=== PATIENT | female | born 1980 | race African-American/Black ===

== ENCOUNTER 2018-10-11 17:16 | Emergency (ER) | payer SELFPAY | END 2018-10-11 19:19 | disposition left against medical advice (07) | LOC: ERS 17:16 | DX: Z53.21 Procedure and treatment not carried out due to patient leaving prior to being seen by health care provider (principal) ==

== ENCOUNTER 2019-06-22 09:03 | Emergency (ER) | payer BC, SELFPAY ==
[2019-06-22] MEDS ORDERED: Metoclopramide HCl 10 MG/2 ML VIAL ONE (09:48)
[2019-06-22] MEDS ORDERED: Ketorolac Tromethamine 30 MG/ML VIAL ONE (09:48)
[2019-06-22] MEDS ORDERED: Dexamethasone 10 MG/ML VIAL ONE (09:48)
== END 2019-06-22 11:25 | disposition home or self-care (01) ==
LOC: ERS 09:03
DX: G43.909 Migraine, unspecified, not intractable, without status migrainosus (principal); F32.9 Major depressive disorder, single episode, unspecified
CPT/HCPCS: 96361; 96374; 96375; J1100; J1885; J2765

== ENCOUNTER 2019-10-30 05:44 | Emergency (ER) | payer BC ==
[2019-10-30] MEDS ORDERED: Ketorolac Tromethamine 60 MG/2 ML VIAL ONE ×2 (06:05→06:07)
== END 2019-10-30 06:35 | disposition home or self-care (01) ==
LOC: ERS 05:44
DX: J02.9 Acute pharyngitis, unspecified (principal); F32.9 Major depressive disorder, single episode, unspecified; G43.909 Migraine, unspecified, not intractable, without status migrainosus; Z79.899 Other long term (current) drug therapy
CPT/HCPCS: 87081; 87430; 96372; 99283; J1885

== ENCOUNTER 2020-06-21 07:18 | Emergency (ER) | payer BC, SELFPAY ==
[2020-06-21] MEDS ORDERED: Ibuprofen 800 MG TAB ONE (08:06)
[2020-06-21] MEDS ORDERED: Acetaminophen 500 MG TAB ONE (09:01)
--- NOTE | 2020-06-21 10:48 | RAD ---
LEFT HIP RADIOGRAPHS TWO VIEWS: 06/21/20 PROVIDED CLINICAL HISTORY: Left hip pain. FINDINGS: Evaluation is limited by patient body habitus. There is no evidence for fracture or other acute osseous abnormality. If there is persistent clinical concern, conservative management and follow-up imaging are advised. IMPRESSION: As above. POS: KATIE
== END 2020-06-21 09:03 | disposition home or self-care (01) ==
LOC: ERS 07:18
DX: G62.9 Polyneuropathy, unspecified (principal); R51.9 Headache, unspecified; M25.552 Pain in left hip; F32.9 Major depressive disorder, single episode, unspecified

== ENCOUNTER 2020-06-22 19:17 | Emergency (ER) | payer SELFPAY | END 2020-06-22 21:48 | disposition home or self-care (01) | LOC: ERS 19:17 | DX: R53.83 Other fatigue (principal); T48.1X5A Adverse effect of skeletal muscle relaxants [neuromuscular blocking agents], initial encounter; G43.909 Migraine, unspecified, not intractable, without status migrainosus | CPT/HCPCS: 93005 ==

== ENCOUNTER 2020-06-25 09:10 | Emergency (ER) | payer SELFPAY ==
[2020-06-25 10:44] LABS: #Eosinphils 0.1 thou/uL (0.0-0.7); #Monocytes 0.4 thou/uL (0.11-0.59); #Neutrophils 2.2 thou/uL (1.40-6.50); %Basophils 0.3 % (0.0-1.0); %Lymphocytes 42.8 % (21.0-51.0); %Monocytes 8.6 % (0.0-10.0); %Neutrophils 46.3 % (42.0-75.0); Hemoglobin 14.1 g/dL (12.0-16.0); Mean Corpuscular HGB CONC 31.3 g/dL (32.0-36.0); Mean Corpuscular Hemoglobin 27.5 pg (27.0-31.0); Mean Platelet Volume 8.7 fL (7.4-10.4); Platelet Count 179 thou/uL (130-400); RBC Distribution Width 12.7 % (11.5-14.5); Red Blood Cell (RBC) Count 5.12 mill/uL (4.20-5.40); White Blood Cell (WBC) Count 4.8 thou/uL (4.8-10.8)
[2020-06-25] MEDS ORDERED: Acetaminophen 500 MG TAB ONE (10:51)
[2020-06-25] MEDS ORDERED: diphenhydrAMINE 50 MG/ML VIAL ONE (10:51)
[2020-06-25] MEDS ORDERED: Metoclopramide HCl 10 MG/2 ML VIAL ONE (10:51)
[2020-06-25 11:02] LABS: BHCG - Serum Negative (NEGATIVE); Pregs Control Background? CLEAR/WHITE (CLR/WHITE); Pregs Control Bar Appear? YES (CONTROL BAR)
[2020-06-25 11:18] LABS: ALT (SGPT) 25 U/L (8-55); AST (SGOT) 21 U/L (5-34); Albumin 3.8 g/dL (3.5-5.0); Alkaline Phosphatase 69 U/L (40-110); Anion Gap 12 mmol/L (10-20); BUN (Urea Nitrogen) 7 mg/dL (7.0-18.7); Bilirubin, Total 0.2 mg/dL (0.2-1.2); Calc. Creatinine Clearance 0 mL/min (70-130); Calcium 9.1 mg/dL (7.8-10.44); Carbon Dioxide 21 mmol/L (22-29); Chloride 108 mmol/L (98-107); Estimated GFR-MDRD Greater than 90; Globulin 3.9 g/dL (2.4-3.5); Glucose 86 mg/dL (70-105); Potassium 3.7 mmol/L (3.5-5.1); Protein, Total 7.7 g/dL (6.0-8.3); Sodium 137 mmol/L (136-145)
--- NOTE | 2020-06-28 13:13 | EKG ---
Test Reason : Blood Pressure : / mmHG Vent. Rate : 068 BPM Atrial Rate : 068 BPM P-R Int : 162 ms QRS Dur : 064 ms QT Int : 398 ms P-R-T Axes : 065 005 005 degrees QTc Int : 423 ms Normal sinus rhythm Low voltage QRS Nonspecific ST abnormality Abnormal ECG Confirmed by HERBIE ESTEBAN DO ([id number]), international editorial producer ODIN HERNÁNDEZ ([id number]) on 06/28/2020 1:13:34 PM Referred By: Confirmed By:HERBIE ESTEBAN DO
== END 2020-06-25 14:10 | disposition home or self-care (01) ==
LOC: ERS 09:10
DX: G43.909 Migraine, unspecified, not intractable, without status migrainosus (principal); R55 Syncope and collapse
CPT/HCPCS: 36415; 80053; 84484; 84703; 85025; 93005; 96365; 96375; J1200; J2765

== ENCOUNTER 2020-09-22 11:45 | Outpatient (CLI) | payer BC ==
--- NOTE | 2020-09-22 13:31 | MMO ---
Bilateral MAMMO Bilat Screen [facility]. CLINICAL HISTORY: Patient is 40 years old and is seen for screening. The patient has no family history of breast cancer. The patient has no personal history of cancer. VIEWS: The views performed were: bilateral craniocaudal with tomosynthesis and bilateral mediolateral oblique with tomosynthesis. This study has been interpreted with the assistance of computer-aided detection. MAMMOGRAM FINDINGS: There are scattered fibroglandular densities. There are no suspicious masses, suspicious calcifications, or new areas of architectural distortion. IMPRESSION: THERE IS NO MAMMOGRAPHIC EVIDENCE OF MALIGNANCY. A ROUTINE FOLLOW-UP MAMMOGRAM IN 1 YEAR IS RECOMMENDED. THE RESULTS OF THIS EXAM WERE SENT TO THE PATIENT. ACR BI-RADS Category 1 - Negative MAMMOGRAPHY NOTE: 1. A negative mammogram report should not delay a biopsy if a dominant of clinically suspicious mass is present. 2. Approximately 10% to 15% of breast cancers are not detected by mammography. 3. Adenosis and dense breasts may obscure an underlying neoplasm. Reported by: VENKATESH PEREZ MD Electonically Signed: [id number]
== END 2020-09-22 11:46 | disposition home or self-care (01) ==
LOC: BICMAMMO 11:45
PROVIDERS: ATTEND Nurse Practitioner Women's Health
DX: Z12.31 Encounter for screening mammogram for malignant neoplasm of breast (principal)
CPT/HCPCS: 77063; 77067

== ENCOUNTER 2021-08-10 20:19 | Emergency (ER) | payer BC | END 2021-08-10 21:05 | disposition home or self-care (01) | LOC: ERS 20:19 | DX: B34.9 Viral infection, unspecified (principal); G43.909 Migraine, unspecified, not intractable, without status migrainosus; F17.290 Nicotine dependence, other tobacco product, uncomplicated | CPT/HCPCS: 71045; 93005 ==

== ENCOUNTER 2022-02-16 13:53 | Outpatient (CLI) | payer BC | END 2022-02-16 13:54 | disposition home or self-care (01) | LOC: BICMAMMO 13:53 | PROVIDERS: ATTEND Nurse Practitioner Women's Health | DX: Z12.31 Encounter for screening mammogram for malignant neoplasm of breast (principal) | CPT/HCPCS: 77063; 77067 ==

== ENCOUNTER 2022-04-07 04:43 | Emergency (ER) | payer BC ==
[2022-04-07] MEDS ORDERED: Metoclopramide HCl 10 MG/2 ML VIAL ONE ×2 (05:10)
[2022-04-07] MEDS ORDERED: Ketorolac Tromethamine 30 MG/ML VIAL ONE (05:10)
[2022-04-07 05:41] LABS: #Basophils 0.1 thou/uL (0.0-0.2); #Eosinphils 0.2 thou/uL (0.0-0.7); #Lymphocytes 2.9 thou/uL (1.20-3.40); #Monocytes 0.7 thou/uL (0.11-0.59); #Neutrophils 2.2 thou/uL (1.40-6.50); %Eosinophils 4.1 % (0.0-10.0); %Lymphocytes 48.1 % (21.0-51.0); %Monocytes 10.8 % (0.0-10.0); %Neutrophils 35.9 % (42.0-75.0); Hemoglobin 12.4 g/dL (12.0-16.0); Mean Corpuscular Hemoglobin 29.7 pg (27.0-31.0); Mean Corpuscular Volume 89.8 fL (78.0-98.0); Mean Platelet Volume 8.3 fL (7.4-10.4); Platelet Count 226 thou/uL (130-400); RBC Distribution Width 12.9 % (11.5-14.5); Red Blood Cell (RBC) Count 4.18 mill/uL (4.20-5.40)
[2022-04-07 05:55] LABS: ALT (SGPT) 12 U/L (8-55); AST (SGOT) 14 U/L (5-34); Albumin 3.7 g/dL (3.5-5.0); Alkaline Phosphatase 59 U/L (40-110); Anion Gap 13 mmol/L (10-20); BUN (Urea Nitrogen) 9 mg/dL (7.0-18.7); Bilirubin, Total 0.6 mg/dL (0.2-1.2); Calc. Creatinine Clearance 0 mL/min (70-130); Calcium 9.1 mg/dL (7.8-10.44); Carbon Dioxide 21 mmol/L (22-29); Chloride 111 mmol/L (98-107); Estimated GFR 74; Glucose 93 mg/dL (70-105); Potassium 3.7 mmol/L (3.5-5.1); Protein, Total 6.7 g/dL (6.0-8.3); Sodium 141 mmol/L (136-145)
== END 2022-04-07 06:38 | disposition home or self-care (01) ==
LOC: ERS 04:43
DX: G43.909 Migraine, unspecified, not intractable, without status migrainosus (principal); R07.89 Other chest pain
CPT/HCPCS: 71045; 80053; 83880; 84484; 85025; 93005; 96365; 96375; J1885; J2765

== ENCOUNTER 2022-11-12 01:51 | Emergency (ER) | payer BC ==
[2022-11-12] MEDS ORDERED: Ketorolac Tromethamine 30 MG/ML VIAL ONE (04:49)
[2022-11-12] MEDS ORDERED: diphenhydrAMINE 50 MG CAP ONE (04:49)
[2022-11-12] MEDS ORDERED: diphenhydrAMINE 50 MG/ML VIAL ONE (04:49)
[2022-11-12] MEDS ORDERED: Metoclopramide HCl 10 MG/2 ML VIAL ONE (04:49)
[2022-11-12 05:53] LABS: SARS-CoV-2 NAA Rapid Test Not Detected (NotDetected)
[2022-11-12] MEDS ORDERED: Dexamethasone 10 MG/ML VIAL ONE (06:13)
== END 2022-11-12 06:36 | disposition home or self-care (01) ==
LOC: ERS 01:51
DX: G43.909 Migraine, unspecified, not intractable, without status migrainosus (principal); Z20.822 Contact with and (suspected) exposure to COVID-19
CPT/HCPCS: 96374; 96375; J1100; J1200; J1885; J2765

== ENCOUNTER 2024-03-02 14:33 | Outpatient (CLI) | payer OTHER | END 2024-03-02 14:34 | disposition home or self-care (01) | LOC: BICMAMMO 14:33 | PROVIDERS: ATTEND Nurse Practitioner Women's Health | DX: Z12.31 Encounter for screening mammogram for malignant neoplasm of breast (principal) | CPT/HCPCS: 77063; 77067 ==